=== PATIENT | male | born 1960 | race Caucasian/White ===

== ENCOUNTER → 2017-12-03 10:42 | Outpatient (CLI) | payer OTHER, SELFPAY ==
[2017-12-03 11:29] LABS: Add Manual Diff / Slide Review NO; Basophils Percent Auto 1.3 % (0-2); Eosinophils Percent Auto 1.4 % (2-4); Hematocrit 43.3 % (41-53); Hemoglobin 14.9 g/dL (13.5-17.5); Mean Corpuscular HGB Conc 34.3 % (30-36); Mean Corpuscular Hemoglobin 32.9 PG (26-34); Mean Corpuscular Volume 95.9 fL (80-100); Monocytes Percent Auto 11.7 % (3-14); Neutrophils Absolute Auto 2500 /uL (3000-5900); Neutrophils Percent Auto 53.6 % (50-75); Platelet Count 201 X10^3/uL (150-400); Red Blood Cell Count 4.52 X10^6/uL (4.5-5.9); Red Cell Distribution Width 12.6 % (11.6-14.8); White Blood Cell Count 4.7 X10^3/uL (4.5-11.0)
[2017-12-03 11:44] LABS: Alanine Aminotransferase 29 IU/L (21-72); Albumin 4.3 g/dL (3.5-5.0); Albumin Globulin Ratio 1.5 (1.0-2.8); Alkaline Phosphatase 45 U/L (38-126); Aspartate Aminotransferase 23 IU/L (17-59); BUN Creatinine Ratio 22.5 (6-22); Bilirubin Total 0.7 mg/dL (0.2-1.3); Blood Urea Nitrogen 18 mg/dL (9-20); Calcium 9.6 mg/dL (8.4-10.2); Carbon Dioxide 28 mmol/L (22-32); Chloride 103 mmol/L (98-107); Cholesterol 165 mg/dL (140-199); Estimated Glomerular Filt Rate > 60.0 mL/min (>60); Globulin 2.8 g/dL (1.7-4.1); Glucose 82 mg/dL (70-100); HDL Cholesterol 71 mg/dL (40-60); HEMOLYSIS < 15 (0-50); LDL Cholesterol Calculated 79 mg/dL (<100); Potassium 4.5 mmol/L (3.4-5.1); Sodium 142 mmol/L (137-145); Total Protein 7.1 g/dL (6.3-8.2); Triglycerides 74 mg/dL (35-150)
== END ==
PROVIDERS: PCP Nurse Practitioner; Visit Provider Nurse Practitioner Family
DX: Z00.00 Encounter for general adult medical examination without abnormal findings (principal)
CPT/HCPCS: 36415; 80053; 80061; 85025; G0103

== ENCOUNTER → 2017-12-07 07:49 | Outpatient (CLI) | payer OTHER, SELFPAY ==
[2017-12-10 15:10] LABS: Fecal Immunochemical Test NOT DETECTED
== END ==
PROVIDERS: PCP Nurse Practitioner Family; Visit Provider Nurse Practitioner Family
DX: Z00.00 Encounter for general adult medical examination without abnormal findings (principal)
CPT/HCPCS: 82274

== ENCOUNTER 2018-08-22 10:00 | Day surgery (SDC) | payer OTHER, SELFPAY ==
--- NOTE | 2018-08-22 | PATH_ITS ---
[facility] Accession Number: [id number] . 01 Material submitted: . ANTRUM BIOPSIES . 02 Diagnosis: Biopsies, Gastric Antrum: Fragments of antral mucosa with mucosal hyperemia, but negative for significant inflammation. Negative for evidence of Helicobacter on H/E stain. Negative for intestinal metaplasia. Negative for dysplasia and malignancy. [facility]/08/23/2018 . 02 Electronically signed: . Luiz Andrews MD, Pathologist NPI- [id number] . 01 Gross description: . Received in one formalin-filled container, labeled with the patient's name and labeled antrum, are multiple less than 0.1 cm to 0.4 cm portions of tissue, entirely submitted in one cassette. ([id number]) /FRR . 02 Pathologist provided ICD-10: R10.13 . 02 CPT . 893322 Performed at: 01 [facility] [address] [place] [address], [place], [place] [id number] MD Dallas Espinoza MD Phone: [phone] Performed at: 02 [facility] [address] [place], [place] [id number] MD Sujey Wolf MD Phone: [phone]
[2018-08-22 10:19] VITALS: BMI 23.1
[2018-08-22 10:31] VITALS: BP 126/80; PULSE 60; RESP 16; TEMP 36.4; O2SAT 99
--- NOTE | 2018-08-22 11:29 | PM.HP.1 ---
History of Present Illness Date Patient Seen: 08/22/18 Time Patient Seen: 11:10 Chief complaint: [id number] Narrative: Patient is a gentleman who has postprandial pain especially after lunch that last for several hours. Is located in the epigastrium. Is improved with the use of proton pump inhibitors. He is brought for an EGD to evaluate. He does not really have heartburn. Patient History Medical History ADHD (attention deficit hyperactivity disorder) (Chronic) Asthma (Chronic) Cardiac arrhythmia (Chronic 1984) Chronic back pain (Chronic 1984) Cubital tunnel syndrome (Chronic 1993) Eczema (Chronic 1999) Hayfever (Chronic) IBS (irritable bowel syndrome) (Chronic ~1989) Shoulder pain (Chronic 2004) Tinnitus (Chronic 2014) Chest pain (Resolved 2013) Chicken pox (Resolved) Fractures (Resolved 2013) Hepatitis B (Resolved 1989) Surgical History Anesthesia (Resolved) History of arthroscopic knee surgery (Resolved ~1989) History of arthroscopy of right shoulder (Resolved ~1999) History of herniorrhaphy (Resolved 2014) History of open reduction and internal fixation (ORIF) procedure (Resolved 2013) History of vasectomy (Resolved ~1999) Family History (Reviewed 12/10/17 @ 09:20 by Berenice Vizcaino, ALF, ANP, DIRECTOR OF STRATEGIC INITIATIVES-C) Brother Age: 52 Obesity High cholesterol Mental health problem Brother Age: 51 High cholesterol Father Heart disease High cholesterol Arrhythmia Grandfather Heart disease Mother Age: 82 Dementia Frail elderly Alcoholism Heart disease Mental health problem Stroke A-fib Sister Age: 49 Mental health problem Grandmother No problems noted. Grandfather Prostate cancer Grandmother Dementia Mental health problem Social History household members: spouse Smoking Status: Never smoker Family & Social History Family History Brother Age: 52 Obesity High cholesterol Mental health problem Brother Age: 51 High cholesterol Father Heart disease High cholesterol Arrhythmia Grandfather Heart disease Mother Age: 82 Dementia Frail elderly Alcoholism Heart disease Mental health problem Stroke A-fib Sister Age: 49 Mental health problem Grandmother No problems noted. Grandfather Prostate cancer Grandmother Dementia Mental health problem Social History: household members spouse Tobacco & Substance use: Smoking Status Never smoker Meds Home Medications Medication Instructions Recorded Confirmed Type ASPIRIN (#ASPIRIN) 81 mg PO QDAY #0 04/02/11 08/22/18 History naproxen sodium [Aleve] 220 mg PO PRN #0 04/02/11 08/22/18 History albuterol sulfate HFA 90 1 puff INHALATION Q4HP PRN #1 ea 12/10/17 08/22/18 Rx mcg/actuation aerosol inhaler calcium citrate-vitamin D3 315 1 tab PO BID 12/10/17 08/22/18 History mg-250 unit tablet coq10 300 mg PO DAILY 12/10/17 08/22/18 History tamsulosin 0.4 mg capsule 0.4 mg PO QDAY #90 cap 12/10/17 08/22/18 Rx sildenafil (antihypertensive) 20 20 mg PO TID #90 tab 02/08/18 08/22/18 Rx mg tablet Allergies Allergy/AdvReac Type Severity Reaction Status Date / Time No Known Drug Allergies Allergy Unverified 12/10/17 08:17 Review of Systems Review of Systems All systems reviewed & are unremarkable except as noted in HPI and below Respiratory Comments: History of asthma. He uses an inhaler occasionally. Last time was a month ago. Also has sleep apnea uses a CPAP machine. Exam Vital Signs (past 8 hours): - 08/22/18 10:31 Temperature 97.6 F Pulse Rate 60 Respiratory Rate 16 Blood Pressure 126/80 Pulse Oximetry 99 Oxygen Delivery Method Room Air Narrative Exam Narrative: Operative within gentleman no apparent distress. Lungs are clear no rales or rhonchi no wheezing. Heart regular rate and rhythm without murmur gallop. Abdomen is soft scaphoid nontender without mass. Patient is alert and oriented x3. Assessment & Plan Assessment & Plan narrative: Patient for an EGD. I discussed the risks of bleeding perforation with him. He appears to understand wishes to proceed.
--- NOTE | 2018-08-22 11:32 | PM.PREOP ---
Pre-operative Note Interval Note History & Physical reviewed/Exam performed by Physician: Yes Changes to H&P: No ASA Class (for procedural sedation): II
[2018-08-22] MEDS: TETRACAINE/BENZOCAINE/BUTAMBEN (CETACAINE) BOTTLE 1 SPRAY TOP (11:33)
[2018-08-22] MEDS: LIDOCAINE 4% SOLN 50 ML 20 ML TOP (11:33)
[2018-08-22] MEDS: fentaNYL 250 MCG/5 ML INJ IV (11:37)
[2018-08-22] MEDS: MIDAZOLAM 5 MG/5 ML VIAL IV (11:38)
--- NOTE | 2018-08-22 11:45 | PM.OP.ENDO ---
Operative Date/Time/Diagnoses Date of procedure: 08/22/18 Time of procedure: 11:45 Post-op diagnosis: other (Superficial gastric ulcers) Procedure & Clinicians Study performed: EGD with cold biopsy Same procedure as scheduled: Yes Indications: Diagnostic Surgeon: Alonzo Bentley Procedure Notes SCOAP/Timeout: Performed Procedure in detail: The patient had topical anesthetic applied to oropharynx. She was placed in left lateral decubitus position and underwent IV sedation directed by the surgeon consisting of fentanyl and Versed. A bite block was inserted and the scope was advanced through it into the esophagus. The cord structures were noted to be normal. The esophagus was unremarkable. GE junction was noted at 41 cm from the incisors. The stomach insufflated well. The patient was noted to have multiple very small areas of ulceration. Each of them were crowned by a tiny amount of black material consistent with blood exposed acid. They were essentially punctate ulcers. There was very little surrounding inflammation. The pyloric channel was slightly narrowed but patent. The duodenum was unremarkable to the 4th part. The bulb was rather short. The scope was brought back into the stomach and retroflexed. The proximal stomach was normal except for a very small hiatal hernia. The scope was straightened and biopsies taken of the antrum and incisura. The scope was then and brought out through the esophagus again. No lesions were seen. There was no evidence of Nolen's esophagus. The GE junction was sharply demarcated as would normally be expected. The scope was removed and the patient tolerated the procedure well. Scope withdrawal time: Not applicable Sedation minutes: 10 Findings: gastric ulcer (Superficial, punctate and multiple) Specimen(s): other (Antrum and incisura) Complications: none Recommendations: Continue medication(s) (Will recommend twice daily proton pump inhibitor) Plan for aftercare: Will follow up in the operating room in person. Disposition: PACU
[2018-08-22 11:52] VITALS: BP 110/73; PULSE 51; RESP 14; TEMP 36.9; O2SAT 96
[2018-08-22 11:57] VITALS: BP 116/66; PULSE 55; RESP 16
[2018-08-22 12:08] VITALS: BP 109/72; PULSE 56; RESP 16; TEMP 36.7; O2SAT 99
== END 2018-08-22 12:22 | disposition home or self-care (01) ==
PROVIDERS: Visit Provider Specialist
PROC: 0DJ08ZZ Inspection of Upper Intestinal Tract, Via Natural or Artificial Opening Endoscopic (ICD-10-PCS; CPT 43235; principal; 2018-08-22 11:00)
DX: K25.9 Gastric ulcer, unspecified as acute or chronic, without hemorrhage or perforation (principal); J45.909 Unspecified asthma, uncomplicated; K44.9 Diaphragmatic hernia without obstruction or gangrene
CPT/HCPCS: 43239; 99152; J2250; J3010

== ENCOUNTER → 2019-04-07 08:22 | Outpatient (CLI) | payer OTHER, SELFPAY ==
[2019-04-07 10:18] LABS: Hematocrit 45.2 % (41-53); Hemoglobin 15.6 g/dL (13.5-17.5); Mean Corpuscular HGB Conc 34.6 % (30-36); Mean Corpuscular Hemoglobin 33.2 PG (26-34); Mean Corpuscular Volume 96.1 fL (80-100); Platelet Count 209 X10^3/uL (150-400); Red Cell Distribution Width 12.6 % (11.6-14.8); White Blood Cell Count 4.8 X10^3/uL (4.5-11.0)
[2019-04-07 10:33] LABS: Alanine Aminotransferase 19 IU/L (<50); Albumin 4.6 g/dL (3.5-5.0); Albumin Globulin Ratio 1.6 (1.0-2.8); Alkaline Phosphatase 52 U/L (38-126); Aspartate Aminotransferase 29 IU/L (17-59); BUN Creatinine Ratio 17.8 (6-22); Bilirubin Total 1.1 mg/dL (0.2-1.3); Blood Urea Nitrogen 16 mg/dL (9-20); Calcium 9.5 mg/dL (8.4-10.2); Carbon Dioxide 31 mmol/L (22-32); Chloride 102 mmol/L (98-107); Cholesterol 172 mg/dL (140-199); Estimated Glomerular Filt Rate > 60.0 mL/min (>60); Globulin 2.9 g/dL (1.7-4.1); Glucose 83 mg/dL (70-100); HDL Cholesterol 55 mg/dL (40-60); HEMOLYSIS < 15 (0-50); LDL Cholesterol Calculated 105 mg/dL (<100); Potassium 4.5 mmol/L (3.4-5.1); Sodium 140 mmol/L (137-145); Total Protein 7.5 g/dL (6.3-8.2); Triglycerides 61 mg/dL (35-150)
[2019-04-07 11:02] LABS: Prostate Specific Antigen Scrn 1.71 ng/mL (0.1-4.0)
== END ==
PROVIDERS: PCP Nurse Practitioner Family; Visit Provider Nurse Practitioner Family
DX: Z00.00 Encounter for general adult medical examination without abnormal findings (principal); Z13.6 Encounter for screening for cardiovascular disorders; Z12.5 Encounter for screening for malignant neoplasm of prostate
CPT/HCPCS: 36415; 80053; 80061; 85027; G0103

== ENCOUNTER → 2020-04-12 08:07 | Outpatient (CLI) | payer OTHER, SELFPAY ==
[2020-04-12 10:01] LABS: Hematocrit 43.7 % (41-53); Hemoglobin 14.9 g/dL (13.5-17.5); Mean Corpuscular HGB Conc 34.1 % (30-36); Mean Corpuscular Hemoglobin 33.3 PG (26-34); Mean Corpuscular Volume 97.8 fL (80-100); Platelet Count 198 X10^3/uL (150-400); Red Blood Cell Count 4.47 X10^6/uL (4.5-5.9); Red Cell Distribution Width 12.4 % (11.6-14.8); White Blood Cell Count 5.9 X10^3/uL (4.5-11.0)
[2020-04-12 10:37] LABS: Alanine Aminotransferase 22 IU/L (<50); Albumin 4.2 g/dL (3.5-5.0); Albumin Globulin Ratio 1.5 (1.0-2.8); Alkaline Phosphatase 53 U/L (38-126); Aspartate Aminotransferase 32 IU/L (17-59); BUN Creatinine Ratio 21.1 (6-22); Bilirubin Total 0.8 mg/dL (0.2-1.3); Blood Urea Nitrogen 19 mg/dL (9-20); Calcium 9.2 mg/dL (8.4-10.2); Carbon Dioxide 32 mmol/L (22-32); Chloride 103 mmol/L (98-107); Cholesterol 149 mg/dL (140-199); Estimated Glomerular Filt Rate > 60.0 mL/min (>60); Globulin 2.8 g/dL (1.7-4.1); Glucose 91 mg/dL (70-100); HDL Cholesterol 59 mg/dL (40-60); HEMOLYSIS < 15 (0-50); LDL Cholesterol Calculated 79 mg/dL (<100); Potassium 4.5 mmol/L (3.4-5.1); Sodium 137 mmol/L (137-145); Triglycerides 56 mg/dL (35-150)
== END ==
PROVIDERS: PCP Nurse Practitioner Family; Referring Provider Nurse Practitioner Family; Visit Provider Nurse Practitioner Family
DX: Z00.00 Encounter for general adult medical examination without abnormal findings (principal); Z13.6 Encounter for screening for cardiovascular disorders
CPT/HCPCS: 36415; 80053; 80061; 85027

== ENCOUNTER → 2020-06-14 08:22 | Outpatient (CLI) | payer OTHER, SELFPAY ==
[2020-06-14] MEDS: COVID-19 VACC(MODERNA-1)/PF 100 MCG/0.5 ML VIAL IM (08:29)
== END ==
PROVIDERS: PCP Nurse Practitioner Family; Visit Provider Internal Medicine
DX: Z23 Encounter for immunization (principal)
CPT/HCPCS: 0011A; 91301

== ENCOUNTER → 2020-07-11 08:19 | Outpatient (CLI) | payer OTHER, SELFPAY ==
[2020-07-11] MEDS: COVID-19 VACC #2, MRNA(MOD) 100 MCG/0.5 ML VIAL IM (08:21)
== END ==
PROVIDERS: PCP Nurse Practitioner Family; Visit Provider Internal Medicine
DX: Z23 Encounter for immunization (principal)
CPT/HCPCS: 0012A; 91301

== ENCOUNTER → 2021-04-25 08:07 | Outpatient (CLI) | payer OTHER, SELFPAY ==
[2021-04-25] MEDS: COVID-19 VACC #3, MRNA(MOD) 50 MCG/0.25 ML VIAL IM (08:14)
== END ==
PROVIDERS: PCP Nurse Practitioner Family; Visit Provider Internal Medicine
DX: Z23 Encounter for immunization (principal)
CPT/HCPCS: 0013A; 91301

== ENCOUNTER → 2021-05-09 06:22 | Outpatient (CLI) | payer OTHER, SELFPAY ==
[2021-05-09 08:04] LABS: Hematocrit 43.2 % (41-53); Hemoglobin 14.9 g/dL (13.5-17.5); Mean Corpuscular HGB Conc 34.5 % (30-36); Mean Corpuscular Hemoglobin 33.2 PG (26-34); Mean Corpuscular Volume 96.2 fL (80-100); Platelet Count 219 X10^3/uL (150-400); Red Blood Cell Count 4.49 X10^6/uL (4.5-5.9); Red Cell Distribution Width 12.4 % (11.6-14.8); White Blood Cell Count 5.6 X10^3/uL (4.5-11.0)
[2021-05-09 08:20] LABS: HEMOLYSIS < 15 (0-50)
[2021-05-09 08:25] LABS: Alanine Aminotransferase 18 IU/L (<50); Albumin 4.3 g/dL (3.5-5.0); Albumin Globulin Ratio 1.5 (1.0-2.8); Alkaline Phosphatase 52 U/L (38-126); Aspartate Aminotransferase 25 IU/L (17-59); BUN Creatinine Ratio 20.9 (6-22); Bilirubin Total 0.7 mg/dL (0.2-1.3); Blood Urea Nitrogen 19 mg/dL (9-20); Calcium 9.3 mg/dL (8.4-10.2); Carbon Dioxide 30 mmol/L (22-32); Chloride 103 mmol/L (98-107); Cholesterol 181 mg/dL (140-199); Estimated Glomerular Filt Rate > 60.0 mL/min (>60); Globulin 2.8 g/dL (1.7-4.1); Glucose 85 mg/dL (70-100); HDL Cholesterol 65 mg/dL (40-60); LDL Cholesterol Calculated 101 mg/dL (<100); Potassium 4.8 mmol/L (3.4-5.1); Sodium 140 mmol/L (137-145); Total Protein 7.1 g/dL (6.3-8.2); Triglycerides 74 mg/dL (35-150)
[2021-05-09 08:57] LABS: Prostate Specific Antigen Scrn 1.67 ng/mL (0.1-4.0)
== END ==
PROVIDERS: PCP Nurse Practitioner Family; Referring Provider Nurse Practitioner Family; Visit Provider Nurse Practitioner Family
DX: Z00.00 Encounter for general adult medical examination without abnormal findings (principal); N40.0 Benign prostatic hyperplasia without lower urinary tract symptoms; J45.990 Exercise induced bronchospasm; Z13.6 Encounter for screening for cardiovascular disorders; Z83.438 Family history of other disorder of lipoprotein metabolism and other lipidemia
CPT/HCPCS: 36415; 80053; 80061; 85027; G0103

== ENCOUNTER → 2021-06-13 09:50 | Outpatient (CLI) | payer OTHER, SELFPAY ==
[2021-06-13 11:00] LABS: COVID19 -Nasal RAPID Negative (Negative)
== END ==
PROVIDERS: Nurse Practitioner Critical Care Medicine; PCP Nurse Practitioner Family; Referring Provider Internal Medicine; Visit Provider Internal Medicine
DX: Z20.822 Contact with and (suspected) exposure to COVID-19 (principal)
CPT/HCPCS: 87635

== ENCOUNTER → 2022-08-28 08:01 | Outpatient (CLI) | payer OTHER, SELFPAY ==
[2022-08-28 09:03] LABS: Add Manual Diff / Slide Review NO; Basophils Absolute Auto 0 /uL (0-100); Basophils Percent Auto 0.8 % (0-2); Eosinophils Absolute Auto 100 /uL (0-450); Eosinophils Percent Auto 1.6 % (2-4); Hematocrit 46.8 % (41-53); Hemoglobin 15.8 g/dL (13.5-17.5); Lymphocytes Absolute Auto 1400 /uL (1100-4500); Lymphocytes Percent Auto 26.8 % (25-40); Mean Corpuscular HGB Conc 33.9 % (30-36); Mean Corpuscular Hemoglobin 32.5 PG (26-34); Monocytes Absolute Auto 400 /uL (0-900); Monocytes Percent Auto 8.1 % (3-14); Neutrophils Absolute Auto 3400 /uL (1500-7000); Neutrophils Percent Auto 62.7 % (50-75); Platelet Count 298 X10^3/uL (150-400); Red Blood Cell Count 4.87 X10^6/uL (4.5-5.9); Red Cell Distribution Width 12.6 % (11.6-14.8); White Blood Cell Count 5.4 X10^3/uL (4.5-11.0)
[2022-08-28 10:01] LABS: Alanine Aminotransferase 22 IU/L (<50); Albumin 4.4 g/dL (3.5-5.0); Albumin Globulin Ratio 1.3 (1.0-2.8); Alkaline Phosphatase 61 U/L (38-126); Aspartate Aminotransferase 26 IU/L (17-59); Bilirubin Total 0.6 mg/dL (0.2-1.3); Blood Urea Nitrogen 16 mg/dL (9-20); Calcium 9.4 mg/dL (8.4-10.2); Carbon Dioxide 32 mmol/L (22-32); Chloride 102 mmol/L (98-107); Cholesterol 206 mg/dL (140-199); Estimated Glomerular Filt Rate > 60 mL/min (>60); Globulin 3.4 g/dL (1.7-4.1); Glucose 95 mg/dL (70-100); HDL Cholesterol 61 mg/dL (40-60); HEMOLYSIS < 15 (0-50); LDL Cholesterol Calculated 129 mg/dL (<100); Potassium 5.1 mmol/L (3.4-5.1); Sodium 141 mmol/L (137-145); Total Protein 7.8 g/dL (6.3-8.2); Triglycerides 80 mg/dL (35-150)
[2022-08-28 10:29] LABS: Prostate Specific Antigen 2.43 ng/mL (0.10-4.00)
== END ==
PROVIDERS: PCP Family Medicine; Referring Provider Family Medicine; Visit Provider Family Medicine
DX: N40.0 Benign prostatic hyperplasia without lower urinary tract symptoms (principal); Z00.00 Encounter for general adult medical examination without abnormal findings
CPT/HCPCS: 36415; 80053; 80061; 84153; 85025

== ENCOUNTER 2022-12-15 07:26 | Day surgery (SDC) | payer OTHER, SELFPAY ==
--- NOTE | 2022-12-15 | PATH_ITS ---
[facility] Accession Number: [id number] No. of containers..01 Tissue . 01 Material submitted: . colon - HEPATIC FLEXURE POLYP . 01 Diagnosis: Hepatic Flexure, Polpectomy: Sessile serrated adenoma. MRV 12/18/2022 1437 Local . 01 Electronically signed: . Sujey Wolf MD, Pathologist NPI- [id number] . 01 Gross description: . HEPATIC FLEXURE POLYP: Received in formalin is 1 fragment(s) of bello, soft tissue measuring 0.6 x 0.5 x 0.4 cm submitted entirely in 1 cassette(s) /BESSY 12/17/2022 0026 Local . 01 Pathologist provided ICD-10: D12.3 . 01 CPT . 075662 Specimen Comment: A courtesy copy of this report has been sent to [phone] Performed at: 01 [facility] [address] [place] [address], [place], [place] [id number] MD Dallas Espinoza MD Phone: [phone]
[2022-12-15 07:39] VITALS: BP 106/66; PULSE 50; RESP 17; TEMP 35.9; O2SAT 99; BMI 23.0
[2022-12-15] MEDS: LACTATED RINGERS 1,000 ML 100 ML IV (07:47)
--- NOTE | 2022-12-15 08:22 | PM.HP.1 ---
History of Present Illness History of Present Illness Date Patient Seen: 12/15/22 Time Patient Seen: 08:22 Chief complaint: SDC Narrative: Last scope 8-10 years ago, no polyps even after a positive Cologard test. No symptoms, no family hx for colon cancer. 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 Obstructive sleep apnea, adult Shoulder pain (2004) Tinnitus (2014) Surgical History Anesthesia History of arthroscopic knee surgery (~1989) History of arthroscopy of right shoulder (~1999) History of herniorrhaphy (2014) History of open reduction and internal fixation (ORIF) procedure (2013) History of vasectomy (~1999) Family History Brother Age: 56 Obesity High cholesterol Mental health problem Brother Age: 55 High cholesterol Father Heart disease High cholesterol Arrhythmia Grandfather Heart disease Mother Age: 86 Dementia Frail elderly Alcoholism Heart disease Mental health problem Stroke A-fib Sister Age: 53 Mental health problem Grandmother No problems noted. Grandfather Prostate cancer Grandmother Dementia Mental health problem Family/Other Loud snoring Sleep apnea Insomnia Obesity Depression Anxiety ADD (attention deficit disorder) Social History household members: spouse Smoking Status: Never smoker second hand exposure: No alcohol intake: current substance use type: marijuana (rare, edibles) Meds Home Medications and Allergies Home Medications Medication Instructions Recorded Confirmed Type naproxen sodium 220 mg tablet 220 mg PO PRN ##0 04/02/11 12/15/22 History (Aleve) calcium citrate 315 mg 1 tab PO BID 12/10/17 12/15/22 History calcium-vitamin D3 6.25 mcg (250 unit) tablet (Citracal + Vitamin D Maximum) coq10 300 mg PO DAILY 12/10/17 12/15/22 History varicella-zoster glycoE [id number] 0.5 ml IM ONCE #1 ea 01/12/19 08/21/22 Rx adj(PF) 50 mcg/0.5 mL IM susp, kit (Shingrix (PF)) albuterol sulfate 90 mcg/actuation 1 puff inhalation Q4HP PRN 09/07/22 12/15/22 Rx aerosol inhaler (Ventolin HFA) shortness of breath or wheezing #1 ea tamsulosin 0.4 mg capsule 0.4 mg PO BEDTIME #90 caps 09/07/22 12/15/22 Rx sildenafil (pulm.hypertension) 20 20 mg PO DAILY PRN sexual activity 11/05/22 12/15/22 Rx mg tablet (Revatio) #100 tabs montelukast 10 mg tablet 10 mg PO BEDTIME #30 tabs 12/04/22 12/15/22 Rx Allergies Allergy/AdvReac Type Severity Reaction Status Date / Time animal dander Allergy Mild runny Verified 08/21/22 08:30 nose, weepy eyes, asthma tree and shrub pollen Allergy Mild runny Verified 08/21/22 08:30 nose, weepy eyes, asthma melon AdvReac Mild Nausea Verified 12/15/22 07:50 peanut AdvReac Mild Diarrhea Verified 12/15/22 07:50 Review of Systems Review of Systems ROS: Yes other (no GI symptoms) Exam Vital Signs (past 8 hours): - 12/15/22 07:39 Temperature 96.6 F L Pulse Rate 50 L Respiratory Rate 17 Blood Pressure 106/66 Pulse Oximetry 99 Oxygen Delivery Method Room Air Oxygen Delivery Method Room Air Const General: cooperative and healthy appearing Nutritional Appearance: thin HENMT Head: normocephalic and atraumatic Ears: hearing grossly normal bilaterally Eyes Sclera: sclerae normal Neck Neck: trachea midline Resp Effort & Inspection: normal respiratory effort and able to speak in complete sentences Cardio Rate: regular rate Rhythm: regular rhythm GI Palpation: soft Skin General: elasticity normal and turgor normal Neuro General: patient alert, patient awake and patient oriented x3 Cognition: normal cognition Psych Mental Status: mental status grossly normal Judgment: judgment good Assessment & Plan Assessment & Plan narrative: colon cancer screening with colonoscopy under MAC Time Spent With Patient Time with patient: less than 30 minutes
--- NOTE | 2022-12-15 08:28 | PM.OP.COLON ---
Operative Date/Time/Diagnoses Date of procedure: 12/15/22 Time of procedure: 08:29 Pre-op diagnosis: Colon cancer screening Post-op diagnosis: same Procedure & Clinicians Study performed: Colonoscopy under MAC Same procedure as scheduled: Yes Indications: Colon cancer screening Surgeon: Rossy Zapien Procedure Notes Procedure in detail: Preop diagnosis: Colon cancer screening Postop diagnosis: Same Operative procedure: Colonoscopy with hot snare polypectomy using MAC Surgeon: Traci Zapien MD Findings: Sessile polyp in the area of the hepatic flexure measuring 5 mm taken with a hot snare. Procedure: Patient placed in a lateral position. Rectal exam performed showing normal tone no masses. Colonoscope inserted into the rectum and advanced to ileocecal valve with minimal difficulty. Insufflation and extraction of the scope and the above findings. Impression: Single sessile polyp at the hepatic flexure taken with a hot snare. No diverticulosis Plan: Repeat colonoscopy in 5 years. Findings: polyp(s) (Single sessile 5 mm polyp at hepatic flexure taken with hot snare) Specimen(s): none sent (5 mm polyp hepatic flexure) Complications: none Post-procedure Recommendations: Colonoscopy in 5 years and Will call with biopsy results Follow up: as needed Disposition: PACU
[2022-12-15 09:01] VITALS: BP 98/62; PULSE 57; RESP 10; TEMP 36.1; O2SAT 98
[2022-12-15 09:06] VITALS: BP 97/68; PULSE 51; RESP 15; O2SAT 98
[2022-12-15 09:11] VITALS: BP 107/67; PULSE 50; RESP 10; O2SAT 99
[2022-12-15 09:16] VITALS: BP 105/66; PULSE 50; RESP 16; TEMP 36.2; O2SAT 100
[2022-12-15 09:17] VITALS: BP 103/70; PULSE 47; RESP 15; O2SAT 100
== END 2022-12-15 09:30 | disposition home or self-care (01) ==
PROVIDERS: PCP Family Medicine; Referring Provider Surgery; Visit Provider Surgery
PROC: 0DJD8ZZ Inspection of Lower Intestinal Tract, Via Natural or Artificial Opening Endoscopic (ICD-10-PCS; CPT 45378; principal; 2022-12-15 08:30)
DX: Z12.11 Encounter for screening for malignant neoplasm of colon (principal); D12.3 Benign neoplasm of transverse colon
CPT/HCPCS: 45385; J2704

== ENCOUNTER → 2023-06-29 07:50 | Outpatient (CLI) | payer OTHER, SELFPAY ==
[2023-06-29 10:16] LABS: Alanine Aminotransferase 22 IU/L (<50); Albumin 4.2 g/dL (3.5-5.0); Albumin Globulin Ratio 1.4 (1.0-2.8); Alkaline Phosphatase 61 U/L (38-126); Aspartate Aminotransferase 29 IU/L (17-59); BUN Creatinine Ratio 21.6 (6-22); Blood Urea Nitrogen 19 mg/dL (9-20); Calcium 9.4 mg/dL (8.4-10.2); Carbon Dioxide 29 mmol/L (22-32); Chloride 101 mmol/L (98-107); Cholesterol 167 mg/dL (140-199); Estimated Glomerular Filt Rate > 60 mL/min (>60); Glucose 89 mg/dL (80-110); HDL Cholesterol 60 mg/dL (40-60); HEMOLYSIS < 15 (0-50); LDL Cholesterol Calculated 90 mg/dL (<100); Potassium 4.2 mmol/L (3.4-5.1); Sodium 137 mmol/L (137-145); Total Protein 7.2 g/dL (6.3-8.2); Triglycerides 84 mg/dL (35-150)
[2023-06-29 10:46] LABS: Prostate Specific Antigen 1.87 ng/mL (0.10-4.00)
== END ==
LOC: LAB 07:51
PROVIDERS: PCP Family Medicine; Referring Provider Family Medicine; Visit Provider Family Medicine
DX: Z00.00 Encounter for general adult medical examination without abnormal findings (principal); Z80.42 Family history of malignant neoplasm of prostate; N40.0 Benign prostatic hyperplasia without lower urinary tract symptoms
CPT/HCPCS: 36415; 80053; 80061; 84153

== ENCOUNTER → 2024-01-11 16:42 | Outpatient (CLI) | payer OTHER, SELFPAY ==
--- NOTE | 2024-01-11 16:43 | DI.MRI.S_ITS ---
PROCEDURE: MR ELBOW LT W CON INDICATIONS: LOOSE BODY IN LEFT ELBOW TECHNIQUE: Noncontrast coronal proton density fast spin echo and T2 fast spin echo with fat saturation, axial and sagittal T1 spin echo and T2 fast spin echo with fat saturation through the elbow. COMPARISON: [facility] [place], CR, XR ELBOW 1 OR 2 VIEWS LEFT, 01/07/2024, 9:29. FINDINGS: Image quality: Excellent. Lateral structures: The lateral ulnar collateral ligament and radial collateral ligament both appear thickened at its lateral epicondylar insertion. The overlying common extensor tendon appears thickened with intrasubstance T2 hyperintense signal at its lateral epicondylar insertion. Medial structures: The ulnar collateral ligament appears intact. The overlying common flexor tendon appears normal. The ulnar nerve appears normal in size and signal within the cubital tunnel. Anterior structures: Distal biceps tendinosis at its proximal radial insertion is seen. The brachialis tendon is intact. No bicipitoradial bursal fluid. The median and radial neurovascular bundles appear normal; no focal muscle atrophy to suggest nerve impingement. Posterior structures: The conjoint triceps tendon from the long and lateral heads appears intact. The medial head of the triceps tendon also appears normal, with direct muscle insertion onto the olecranon. No olecranon bursal fluid. Bone and cartilage: No bone marrow contusions or fractures. No osteochondral injuries. IMPRESSION: 1. Finding is suggestive of low to moderate grade lateral epicondylitis with low to moderate grade partial-thickness tear involving common extensor tendon origin and underlying sprain involving radial collateral ligament. 2. Distal biceps tendinosis at its proximal olecranon insertion. 3. No marrow edema. No fracture or dislocation. No intra-articular loose body is seen. Dictated by: Jose Howard M.D. on 01/11/2024 at 21:24 Approved by: Jose Howard M.D. on 01/11/2024 at 21:32
== END ==
LOC: MRI 16:43
PROVIDERS: PCP Family Medicine; Referring Provider Orthopaedic Surgery; Visit Provider Orthopaedic Surgery
DX: M24.022 Loose body in left elbow (principal)
CPT/HCPCS: 73221

== ENCOUNTER → 2024-07-10 07:41 | Outpatient (CLI) | payer OTHER, SELFPAY ==
[2024-07-10 08:34] LABS: Alanine Aminotransferase 23 IU/L (<50); Albumin 4.5 g/dL (3.5-5.0); Albumin Globulin Ratio 1.6 (1.0-2.8); Alkaline Phosphatase 59 U/L (38-126); Aspartate Aminotransferase 30 IU/L (17-59); Bilirubin Total 0.4 mg/dL (0.2-1.3); Blood Urea Nitrogen 21 mg/dL (9-20); Calcium 9.4 mg/dL (8.4-10.2); Carbon Dioxide 28 mmol/L (22-32); Chloride 107 mmol/L (98-107); Estimated Glomerular Filt Rate > 60 mL/min (>60); Globulin 2.8 g/dL (1.7-4.1); Glucose 94 mg/dL (80-110); HEMOLYSIS < 15 (0-50); Sodium 141 mmol/L (137-145); Total Protein 7.3 g/dL (6.3-8.2)
[2024-07-10 09:06] LABS: Prostate Specific Antigen 2.28 ng/mL (0.10-4.00)
== END ==
PROVIDERS: PCP Family Medicine; Referring Provider Family Medicine; Visit Provider Family Medicine
DX: Z00.00 Encounter for general adult medical examination without abnormal findings (principal); Z80.42 Family history of malignant neoplasm of prostate; N40.0 Benign prostatic hyperplasia without lower urinary tract symptoms
CPT/HCPCS: 36415; 80053; 84153